=== PATIENT | male | born 1995 | race Caucasian/White ===

== ENCOUNTER 2017-11-27 07:45 | Emergency (ER) | payer OTHER ==
[~2017-11-27] VITALS: Ht 180.3 cm; Wt 95.7 kg
[2017-11-27 07:48] VITALS: Ht 180.3 cm; Wt 95.7 kg
[2017-11-27 10:20] VITALS: BP 108/56
== END 2017-11-27 10:20 | disposition home or self-care (01) ==
LOC: ED 07:45
DX: B34.9 Viral infection, unspecified (principal)
CPT/HCPCS: J1885; J7613; J7644; Q0092

== ENCOUNTER 2019-08-07 20:37 | Emergency (ER) | payer SELFPAY ==
[~2019-08-07] VITALS: Ht 180.3 cm; Wt 108.9 kg
[2019-08-07 20:42] VITALS: Ht 180.3 cm; Wt 108.9 kg
[2019-08-07 21:41] LABS: BASOPHIL % 0.3 % (0-2); RED CELL DISTRIBUTION WIDTH 13.1 % (11.5-14.5)
[2019-08-07 21:46] LABS: CALCIUM 8.8 mg/dL (8.5-10.1); CARBON DIOXIDE 27.5 mmol/L (21-32); CHLORIDE SERUM 96 mmol/L (98-107); CREATININE SERUM 0.9 mg/dL (0.7-1.3); GFR1 > 60 mL/min; GLUCOSE SERUM 104 mg/dL (74-106); POTASSIUM SERUM 3.8 mmol/L (3.5-5.1); SODIUM SERUM 135 mmol/L (136-145)
[2019-08-07 21:59] LABS: ALKALINE PHOSPHATASE 198 U/L (46-116); ALT/SGPT 69 U/L (16-63); BILIRUBIN TOTAL 0.8 mg/dL (0.20-1.00); FREE T4 1.42 ng/dL (0.76-1.46); TOTAL PROTEIN, SERUM 8.4 g/dL (6.4-8.2)
[2019-08-07 22:00] LABS: AST/SGOT 64 U/L (15-37)
[2019-08-07 22:09] LABS: PLATELET COUNT 294 x10^3mcL (130-400)
[2019-08-07 23:23] VITALS: BP 127/61
== END 2019-08-07 23:23 | disposition home or self-care (01) ==
LOC: ED 20:37
PROVIDERS: Emergency Medicine
DX: M94.0 Chondrocostal junction syndrome [Tietze] (principal); E03.9 Hypothyroidism, unspecified
CPT/HCPCS: 84439; J1885; J7030; Q0092

== ENCOUNTER 2019-11-19 18:21 | Emergency (ER) | payer SELFPAY ==
[~2019-11-19] VITALS: Ht 180.3 cm; Wt 97.1 kg
[2019-11-19 18:58] VITALS: Ht 180.3 cm; Wt 97.1 kg
[2019-11-19 20:43] LABS: BASOPHIL % 0.3 % (0-2); PLATELET COUNT 150 x10^3mcL (130-400); RED CELL DISTRIBUTION WIDTH 13.4 % (11.5-14.5)
[2019-11-19 20:45] LABS: UA SPECIFIC GRAVITY 1.025 (1.005-1.035); microscopic required? YES; urine erythrocyte TRACE (NEGATIVE)
[2019-11-19 21:10] LABS: CALCIUM 9.1 mg/dL (8.5-10.1); CARBON DIOXIDE 23.2 mmol/L (21-32); CHLORIDE SERUM 95 mmol/L (98-107); CREATININE SERUM 1.2 mg/dL (0.7-1.3); GFR1 > 60 mL/min; GLUCOSE SERUM 94 mg/dL (74-106); POTASSIUM SERUM 3.3 mmol/L (3.5-5.1); SODIUM SERUM 130 mmol/L (136-145)
[2019-11-19 21:16] LABS: ALBUMIN 4.3 g/dL (3.4-5.0); ALKALINE PHOSPHATASE 59 U/L (46-116); ALT/SGPT 39 U/L (16-63); AST/SGOT 34 U/L (15-37); BILIRUBIN TOTAL 0.5 mg/dL (0.20-1.00)
[2019-11-19 21:21] LABS: TOTAL PROTEIN, SERUM 8.7 g/dL (6.4-8.2)
[2019-11-19 21:59] VITALS: BP 18/68
== END 2019-11-19 22:23 | disposition home or self-care (01) ==
LOC: ED 18:21
PROVIDERS: Emergency Medicine
DX: J11.1 Influenza due to unidentified influenza virus with other respiratory manifestations (principal); R55 Syncope and collapse; R53.1 Weakness
CPT/HCPCS: 87804; J1885; J7030

== ENCOUNTER 2019-11-21 09:51 | Emergency (ER) | payer SELFPAY ==
[~2019-11-21] VITALS: Ht 180.3 cm; Wt 95.7 kg
[2019-11-21 09:53] VITALS: Ht 180.3 cm; Wt 95.7 kg
[2019-11-21 12:40] VITALS: BP 138/64
== END 2019-11-21 12:40 | disposition home or self-care (01) ==
LOC: ED 09:51
DX: K29.70 Gastritis, unspecified, without bleeding (principal); J11.1 Influenza due to unidentified influenza virus with other respiratory manifestations
CPT/HCPCS: J1885; J3490; J7030; Q0092

== ENCOUNTER 2020-04-26 07:19 | Emergency (ER) | payer SELFPAY ==
[~2020-04-26] VITALS: Ht 177.8 cm; Wt 97.5 kg
[2020-04-26 07:22] VITALS: Ht 177.8 cm; Wt 97.5 kg
[2020-04-26 07:47] LABS: BASOPHIL % 0.5 % (0-2); PLATELET COUNT 132 x10^3mcL (130-400); RED CELL DISTRIBUTION WIDTH 13.3 % (11.5-14.5)
[2020-04-26 07:56] LABS: CALCIUM 8.4 mg/dL (8.5-10.1); CARBON DIOXIDE 27.1 mmol/L (21-32); CHLORIDE SERUM 106 mmol/L (98-107); GFR1 > 60 mL/min; GLUCOSE SERUM 103 mg/dL (74-106); SODIUM SERUM 140 mmol/L (136-145)
[2020-04-26 08:03] LABS: ALKALINE PHOSPHATASE 48 U/L (46-116); ALT/SGPT 24 U/L (16-63); AST/SGOT 22 U/L (15-37); BILIRUBIN TOTAL 0.3 mg/dL (0.20-1.00); CHOLESTEROL 190 mg/dL (<200); HDL CHOLESTEROL 37 mg/dL (40-60); TOTAL PROTEIN, SERUM 7.4 g/dL (6.4-8.2); URIC ACID 6.1 mg/dL (3.5-7.2)
[2020-04-26 09:17] VITALS: BP 110/42
== END 2020-04-26 09:17 | disposition home or self-care (01) ==
LOC: ED 07:19
PROVIDERS: Emergency Medicine
DX: R07.89 Other chest pain (principal); R06.02 Shortness of breath; E03.9 Hypothyroidism, unspecified
CPT/HCPCS: 36415; J1885; Q0092